=== PATIENT | male | born 1985 | race Two or more races ===

== ENCOUNTER 2016-09-28 17:27 | Emergency (ER) | payer SELFPAY ==
[2016-09-28] MEDS ORDERED: Sodium Chloride 0.9% 2,000 ML IV ONE (17:55)
[2016-09-28] MEDS ORDERED: Pantoprazole 40 MG Vial IVPUSH ONE (17:56)
--- NOTE | 2016-09-28 18:12 | EDM.PDOC ---
ED HPI GI/ABDOMINAL - General Chief Complaint: Gastrointestinal Problem Stated Complaint: ULCER Time Seen by Provider: 09/28/16 17:46 Source of Information: Reports: Patient History Limitations: Reports: No limitations - History of Present Illness INITIAL COMMENTS - FREE TEXT/NARRATIVE: HISTORY AND PHYSICAL: History of present illness: [31-year-old male with a history of peptic ulcer disease diagnosed by upper GI scope this is also had a colonoscopy which was unremarkable. Patient now reports nausea vomiting for 10 days which is now resolved and then small amount of blood in his stool over the last 5 days last episode 2 hours ago. Patient feels his last stool was dark and there is a small very small amount of red blood. He has no dizziness or near syncope. No chest pain or palpitations. Patient is not Bahai. He has no history of anemia coagulopathy or anticoagulant use. Review of systems: As per history of present illness and below otherwise all systems reviewed and negative. Past medical history: As per history of present illness and as reviewed below otherwise noncontributory. Surgical history: As per history of present illness and as reviewed below otherwise noncontributory. Social history: No reported history of drug or alcohol abuse. Family history: As per history of present illness and as reviewed below otherwise noncontributory. Physical exam: HEENT: Atraumatic, normocephalic, pupils reactive, negative for conjunctival pallor or scleral icterus, mucous membranes moist, throat clear, neck supple, nontender, trachea midline. Lungs: Clear to auscultation, breath sounds equal bilaterally, chest nontender. Heart: S1S2, regular, negative for clicks, rubs, or JVD. Abdomen: Soft, nondistended, nontender. Negative for masses or hepatosplenomegaly. Negative for costovertebral tenderness. Pelvis: Stable nontender. Genitourinary: Deferred. Rectal: Brown stool occult heme-positive Extremities: Atraumatic, negative for cords or calf pain. Neurovascular unremarkable. Neuro: Awake, alert, oriented. Cranial nerves grossly unremarkable. Cerebellum unremarkable. Motor and sensory unremarkable throughout. Exam nonfocal. Diagnostics: [] Therapeutics: [] Impression: [] Plan: [Signs and symptoms consistent with lower GI bleed given patient has had nausea and vomiting for 10 days with no hematemesis. By patient's description of blood per rectum is a small volume. He has no evidence of hypovolemia and is not symptomatic from blood loss. Abundance of caution redundant IV access obtained IV fluids administered with Protonix for now and diagnosis of peptic ulcer disease. Labs pending as well as type and cross to hold pending results] Definitive disposition and diagnosis as appropriate pending reevaluation and review of above. - Related Data Allergies/ADRs: Allergies Allergy/AdvReac Type Severity Reaction Status Date / Time No Known Allergies Allergy Verified 09/28/16 17:43 Home Meds: Home Meds Pantoprazole Sodium [Protonix] 40 mg PO DAILY #30 tablet. 09/28/16 [Rx] Past Medical History - Past Health History Medical/Surgical History: Denies Medical/Surgical History Gastrointestinal History: Reports: Other (see below) Other Gastrointestinal History: intestinal ulcer - Infectious Disease History Infectious Disease History: Reports: Chicken pox - Past Surgical History GI Surgical History: Reports: Colonoscopy Social & Family History - Family History Family Medical History: Noncontributory - Tobacco Use Smoking Status *Q: Never Smoker - Caffeine Use Caffeine Use: Reports: Coffee - Recreational Drug Use Recreational Drug Use: No ED ROS GENERAL - Review of Systems Review Of Systems: See Below (By mouth) ED EXAM, GI/ABD - Physical Exam Exam: See Below (History of present illness) Course - Vital Signs Last Recorded V/S: Last Vital Signs Temp 37.2 C 09/28/16 18:46 Pulse 91 09/28/16 18:46 Resp 17 09/28/16 18:46 BP 117/70 09/28/16 18:46 Pulse Ox 100 09/28/16 18:46 - Orders/Labs/Meds Orders: Active Orders 24 hr Category Date Time Status RED BLOOD CELLS LP [BBK] Stat Lab 09/28/16 18:07 Received TYPE AND SCREEN [BBK] Stat Lab 09/28/16 18:07 Received UA W/MICROSCOPIC [URIN] Stat Lab 09/28/16 17:49 Uncollected Sodium Chloride 0.9% [Normal Saline] 2,000 ml Med 09/28/16 17:55 Active IV STAT Medication Orders Sodium Chloride (Normal Saline) 2,000 mls @ 999 mls/hr IV STAT ONE Stop: 09/28/16 19:55 Last Admin: 09/28/16 18:06 Dose: 999 mls/hr Labs: Laboratory Tests 09/28/16 09/28/16 Range/Units 18:06 18:06 WBC 8.44 (4.0-11.0) K/uL RBC 3.95 L (4.50-5.90) M/uL Hgb 12.0 L (13.0-17.0) g/dL Hct 35.8 L (38.0-50.0) % MCV 90.6 (80.0-98.0) fL MCH 30.4 (27.0-32.0) pg MCHC 33.5 (31.0-37.0) g/dL RDW Std Deviation 42.9 (28.0-62.0) fl RDW Coeff of Cece 13 (11.0-15.0) % Plt Count 442 H (150-400) K/uL MPV 8.80 (7.40-12.00) fL Neut % (Auto) 66.7 (48.0-80.0) % Lymph % (Auto) 19.5 (16.0-40.0) % Dawes % (Auto) 9.0 (0.0-15.0) % Eos % (Auto) 4.6 (0.0-7.0) % Baso % (Auto) 0.2 (0.0-1.5) % Neut # (Auto) 5.6 (1.4-5.7) K/uL Lymph # (Auto) 1.7 (0.6-2.4) K/uL Dawes # (Auto) 0.8 (0.0-0.8) K/uL Eos # (Auto) 0.4 (0.0-0.7) K/uL Baso # (Auto) 0.0 (0.0-0.1) K/uL Nucleated RBC % 0.0 /100WBC Nucleated RBCs # 0 K/uL Sodium 139 (136-146) mmol/L Potassium 4.0 (3.5-5.1) mmol/L Chloride 105 (98-110) mmol/L Carbon Dioxide 25 (21-31) mmol/L BUN 8 (6.0-23.0) mg/dL Creatinine 0.8 (0.6-1.5) mg/dL Est Cr Clr Drug Dosing 121.35 mL/min Estimated GFR (MDRD) > 60.0 ml/min Glucose 108 (60-110) mg/dL Calcium 8.5 L (8.8-10.8) mg/dL Total Bilirubin 0.4 (0.1-1.5) mg/dL AST 18 (5-40) IU/L ALT 16 (8-54) IU/L Alkaline Phosphatase 62 (40-150) Total Protein 7.7 (6.0-8.0) g/dL Albumin 3.5 (3.5-5.0) g/dL Globulin 4.2 H (2.0-3.5) g/dL Albumin/Globulin Ratio 0.8 L (1.3-2.8) Lipase 13 (7-80) U/L Meds: Medications Generic Name Dose Route Start Last Admin Trade Name Freq PRN Reason Stop Dose Admin Sodium Chloride 2,000 mls @ 999 mls/hr 09/28/16 17:55 09/28/16 18:06 Normal Saline IV 09/28/16 19:55 999 mls/hr STAT ONE Administration Discontinued Medications Generic Name Dose Route Start Last Admin Trade Name Freq PRN Reason Stop Dose Admin Pantoprazole Sodium 80 mg 09/28/16 17:56 09/28/16 18:07 Protonix Iv IVPUSH 09/28/16 17:57 80 mg .BOLUS ONE Administration Departure - Departure Time of Disposition: 19:12 Disposition: Home, Self-Care 01 Condition: good Clinical Impression: Lower GI bleed, Rectal bleed Prescriptions: Pantoprazole Sodium [Protonix] 40 mg PO DAILY #30 tablet.dr Referrals: PCP,None [Primary Care Provider] - Forms: ED Department Discharge - My Orders Last 24 Hours: My Active Orders 09/28/16 17:49 UA W/MICROSCOPIC [URIN] Stat 09/28/16 17:55 Sodium Chloride 0.9% [Normal Saline] 2,000 ml IV STAT 09/28/16 18:07 RED BLOOD CELLS LP [BBK] Stat TYPE AND SCREEN [BBK] Stat - Assessment/Plan Last 24 Hours: My Active Orders 09/28/16 17:49 UA W/MICROSCOPIC [URIN] Stat 09/28/16 17:55 Sodium Chloride 0.9% [Normal Saline] 2,000 ml IV STAT 09/28/16 18:07 RED BLOOD CELLS LP [BBK] Stat TYPE AND SCREEN [BBK] Stat
[2016-09-28 18:37] LABS: CHLORIDE,CL 105 mmol/L (98-110); SODIUM,NA 139 mmol/L (136-146)
[2016-09-28] MEDS ORDERED: Sodium Chloride 0.9% 500 ML IV ONE (19:23)
[2016-09-28 22:36] VITALS: BP 128/76
== END 2016-09-28 20:00 | disposition home or self-care (01) ==
LOC: MW.ED 17:27
DX: K92.2 Gastrointestinal hemorrhage, unspecified (principal); Z98.890 Other specified postprocedural states; Z79.899 Other long term (current) drug therapy
CPT/HCPCS: 36415; 80053; 83690; 85025; 96361; 96374; 99284; C9113; J7040; 86850; 86900; 86901; 86920; 86921; 86922

== ENCOUNTER 2021-03-15 17:55 | Emergency (ER) | payer SELFPAY ==
--- NOTE | 2021-03-15 20:10 | EDM.PDOC ---
ED HPI GENERAL MEDICAL PROBLEM - General Chief Complaint: Respiratory Problem Stated Complaint: COUGH, RECENT VACCINE Time Seen by Provider: 03/15/21 19:17 Source of Information: Reports: Patient History Limitations: Reports: No Limitations - History of Present Illness INITIAL COMMENTS - FREE TEXT/NARRATIVE: HISTORY AND PHYSICAL: History of present illness: Patient is a 36-year-old male who presents to the emergency room with complaints of cough x1 week. He states he noticed a cough after receiving the first dose of his Pfizer COVID-19 vaccine. He is concerned this may be related. Patient denies any fever, chills, headache, change in vision, syncope or near syncope. Denies any chest pain, back pain, shortness of breath or hemoptysis. Denies any abdominal pain, nausea, vomiting, diarrhea, constipation or dysuria. Has not noted any blood in urine or stool. Patient has been eating and drinking appropriately. Review of systems: As per history of present illness and below otherwise all systems reviewed and negative. Past medical history: As per history of present illness and as reviewed below otherwise noncontributory. Surgical history: As per history of present illness and as reviewed below otherwise noncontributory. Social history: See social history for further information Family history: As per history of present illness and as reviewed below otherwise noncontributory. Physical exam: General: Well developed and well nourished. Alert and orientated x 3. Nontoxic in appearance and in no acute distress. Vital signs are stable and have been rev iewed by me. Nursing notes were reviewed. HEENT: Atraumatic, normocephalic, pupils equal and reactive bilaterally, negative for conjunctival pallor or scleral icterus, mucous membranes moist, TMs normal bilaterally, throat clear, neck supple, nontender, trachea midline. No drooling or trismus noted. No meningeal signs. No hot potato voice noted. Lungs: Slightly diminished to auscultation bilaterally. No wheezes, rales, or rhonchi. Chest nontender. Normal work of breathing, no accessory muscles used. Heart: S1S2, regular rate and rhythm without overt murmur, gallops, or rubs. No JVD. No peripheral edema Abdomen: Soft, nondistended, nontender. Normoactive bowel sounds. Negative for masses or costovertebral tenderness. Skin: Intact, warm, dry. No lesions or rashes noted. Hematologic: No petechiae or purpra. Mucosa appropriate color and normal nail bed color and refill. Extremities: Atraumatic, moves all extremities per self without difficulty or deficits, negative for cords or calf pain. Neurovascular unremarkable. Neuro: Awake, alert, oriented. Cranial nerves II through XII unremarkable. Cerebellum unremarkable. Motor and sensory unremarkable throughout. Exam nonfocal. Psychiatric: Mood and affect are appropriate. Normal thought process. Answering questions appropriately. Please note that the patient was seen and evaluated during the 2019 SARS-CoV-2 novel coronavirus pandemic period. Community viral transmission is ongoing at time of this encounter and the emergency department is operating under pandemic response procedures. Medical Decision Making: Patient's physical exam is unremarkable. We will do a two-view chest x-ray. Vital signs are stable and have been reviewed by me. Chest x-ray shows no acute disease. Vital signs are stable. Will treat with zithromax as symptoms have been ongoing for one week. I have talked with the patient about today's findings, in addition to providing specific details for plan of care. Reassessment at the time of disposition demonstrates that the patient is in no acute distress. The patient is stable for discharge, counseling was provided and we discussed in great detail signs and symptoms that would prompt them to return to the Emergency Department. Medication, follow up and supportive care measures were reviewed and discussed. Voices understanding and is agreeable to plan of care. Denies any further questions or concerns at this time. Diagnostics: Chest x-ray Therapeutics: 500mg Azithromycin Prescription: Azithromycin Impression: Acute bronchitis Plan: 1. You were evaluated today on an emergent basis. Take your medication as directed. 2. You can alternate Tylenol and ibuprofen as needed for pain and fever management. 3. We encourage you to follow up with your primary care provider and/or recommended specialist in the next few days for re-evaluation and further care/management. 4. If your symptoms should worsen, new symptoms develop or any of the signs and symptoms we discussed should arise please return to the emergency room or call 911 (if needed). Definitive disposition and diagnosis as appropriate pending reevaluation and review of above. - Related Data Allergies Allergy/AdvReac Type Severity Reaction Status Date / Time No Known Allergies Allergy Verified 03/15/21 19:28 Home Meds: Home Meds Azithromycin [Zithromax] 1 dose PO DAILY 4 Days #4 tab 03/15/21 [Rx] Past Medical History - Past Health History Medical/Surgical History: Denies Medical/Surgical History Gastrointestinal History: Reports: Other (See Below) Other Gastrointestinal History: intestinal ulcer - Infectious Disease History Infectious Disease History: Reports: Chicken Pox - Past Surgical History GI Surgical History: Reports: Colonoscopy Social & Family History - Family History Family Medical History: No Pertinent Family History - Tobacco Use Second Hand Smoke Exposure: No - Caffeine Use Caffeine Use: Reports: None - Recreational Drug Use Recreational Drug Use: No ED ROS GENERAL - Review of Systems Review Of Systems: Comprehensive ROS is negative, except as noted in HPI. ED EXAM, GENERAL - Physical Exam Exam: See Below (See dictation) Course - Vital Signs Last Recorded V/S: Last Vital Signs Temp 97.8 F 03/15/21 18:54 Pulse 84 03/15/21 19:56 Resp 20 03/15/21 19:56 BP 122/73 03/15/21 19:56 Pulse Ox 97 03/15/21 19:56 - Orders/Labs/Meds Meds: Medications Discontinued Medications Generic Name Dose Route Start Last Admin Trade Name Mango PRN Reason Stop Dose Admin Azithromycin 500 mg 03/15/21 20:33 Azithromycin 250 Mg Tab PO 03/15/21 20:34 NOW STA Departure - Departure Time of Disposition: 20:34 Disposition: Home, Self-Care 01 Clinical Impression: Bronchitis - Discharge Information Prescriptions: Azithromycin [Zithromax] 1 dose PO DAILY 4 Days #4 tab Instructions: Acute Bronchitis, Adult, [id number] Referrals: PCP,None [Primary Care Provider] - Forms: ED Department Discharge Additional Instructions: The following information is given to patients seen in the emergency department who are being discharged to home. This information is to outline your options for follow-up care. We provide all patients seen in our emergency department with a follow-up referral. The need for follow-up, as well as the timing and circumstances, are variable depending upon the specifics of your emergency department visit. If you don't have a primary care physician on staff, we will provide you with a referral. We always advise you to contact your personal physician following an emergency department visit to inform them of the circumstance of the visit and for follow-up with them and/or the need for any referrals to a consulting specialist. The emergency department will also refer you to a specialist when appropriate. This referral assures that you have the opportunity for follow-up care with a specialist. All of these measure are taken in an effort to provide you with optimal care, which includes your follow-up. Under all circumstances we always encourage you to contact your private physician who remains a resource for coordinating your care. When calling for follow-up care, please make the office aware that this follow-up is from your recent emergency room visit. If for any reason you are refused follow-up, please contact the [facility] Emergency Department at and asked to speak to the emergency department charge nurse. [facility] [address] [place] [id number] [facility] [address] [place] [id number] Thank you for choosing the [facility] emergency department in [place] for your medical needs today. It was a pleasure caring for you. Today you were seen in the emergency department for cough. 1. You were evaluated today on an emergent basis. Take your medication as directed. 2. You can alternate Tylenol and ibuprofen as needed for pain and fever management. 3. We encourage you to follow up with your primary care provider and/or recommended specialist in the next few days for re-evaluation and further care/management. 4. If your symptoms should worsen, new symptoms develop or any of the signs and symptoms we discussed should arise please return to the emergency room or call 911 (if needed). Sepsis Event Note (ED) - Evaluation Sepsis Screening Result: No Definite Risk - Focused Exam Vital Signs: Vital Signs Temp Pulse Resp BP Pulse Ox 03/15/21 19:56 84 20 122/73 97 03/15/21 18:54 97.8 F 107 H 20 128/78 96
[2021-03-15] MEDS ORDERED: Azithromycin 250 MG Tab PO STA (20:33)
--- NOTE | 2021-03-15 20:36 | CR ---
HISTORY: Chest pain, shortness of breath. TECHNIQUE: Two views of the chest. COMPARISON: No prior. FINDINGS: No acute lung infiltrate or pulmonary edema. No pneumothorax or pleural effusion. Cardiac size and pulmonary vasculature are within normal limits. No acute bony abnormality. IMPRESSION: No acute disease. Dictated by Walt Roach MD @ 03/15/2021 8:35:03 PM (Electronically Signed)
[2021-03-15 21:07] VITALS: BP 129/82; PULSE 87
== END 2021-03-15 20:45 | disposition home or self-care (01) ==
LOC: MW.ED 17:55
DX: J20.9 Acute bronchitis, unspecified (principal)
CPT/HCPCS: 71046; 99283; A9270